=== PATIENT | female | born 1935 | race Caucasian/White ===

== ENCOUNTER 2023-05-24 19:17 | Emergency (ER) | payer OTHER ==
--- NOTE | 2023-05-24 20:30 | RAD REPORT ---
EXAM DESCRIPTION: CT - CTHCSPWOC - 05/24/2023 8:11 pm CLINICAL HISTORY: TRAUMA COMPARISON: No comparisons TECHNIQUE: Axial thin cut noncontrast CT images of the head were obtained. Axial thin cut noncontrast CT images of the cervical spine were obtained. Multiplanar reformatted images were generated and reviewed. All CT scans are performed using dose optimization technique as appropriate and may include automated exposure control or mA/KV adjustment according to patient size. FINDINGS: CT HEAD WITHOUT CONTRAST: No acute hemorrhage, hydrocephalus or extra-axial collection is identified. Mild right tonsillar ecto bruce, descending 5 mm below the level of the foramen magnum. Nonspecific right basal ganglia focus of hypoattenuation. Other nonspecific mild periventricular and deep white matter hypodensities, most com patible with sequela of chronic small vessel ischemic changes.No areas of brain edema or midline shif t. Sequelae of chronic sinusitis, with polypoidal mucosal thickening and sinus wall osteoneogenesis in t he right maxillary sinus.The calvarium is intact. CT CERVICAL SPINE WITHOUT CONTRAST: No fracture or subluxation.No prevertebral soft tissues swelling is identified. At least moderate mul tilevel degenerative changes, contributing to moderate degrees of neural foraminal narrowing bilatera lly at C3-4, on the left at C5-6, and on the right at C6-7 and C7-T1. Dominant right thyroid nodule w ith retrosternal extension, measuring 4.0 x 2.7 cm. IMPRESSION: No acute traumatic intracranial or cervical spine findings. Nonspecific right basal ganglia focus of hypoattenuation, may reflect a small infarct, favored to be chronic, versus sequelae of chronic small vessel ischemic changes. Degenerative cervical spine changes as above. Mild right tonsillar ectopia. Dominant right thyroid nodule up to 4 cm, for which dedicated thyroid ultrasound assessment would be recommended, if not already performed.
--- NOTE | 2023-05-24 21:18 | ER ---
Nurse's Notes [facility] [place] Name: Ni Alcala Age: 88 yrs Sex: Female : 1935 Arrival Date: 05/24/2023 Time: 19:17 Bed 10 Private MD: Diagnosis: Fall, closed head injury, forehead abrasion, right elbow abrasion Presentation: 05/23 19:19 Chief complaint: Patient states: fall with contusion and abrasion to right forehead, pf1 skin tear to right elbow with right hip pain,onset 1 hour [employer]. Patient denies any LOC. Son stated that patient was stepping off the curb, loss her balance and landed onto her right side. Son stated patient was checked out by EMS on scene, patient refused transport to hospital, bandage noted to right elbow. 20:00 Method Of Arrival: Wheelchair nj1 20:00 Coronavirus screen: At this time, the client does not indicate any symptoms associated nj1 with coronavirus-19. Ebola Screen: No symptoms or risks identified at this time. Risk Assessment: Do you want to hurt yourself or someone else? Patient reports no desire to harm self or others. Onset of symptoms was May 24, 2023. 20:00 Acuity: HANNAH 3 nj1 20:57 Initial Sepsis Screen: Does the patient meet any 2 criteria? HR > 90 bpm. No. Patient's nj1 initial sepsis screen is negative. Does the patient have a suspected source of infection? No. Patient's initial sepsis screen is negative. Triage Assessment: 19:19 General: Appears in no apparent distress. comfortable, well groomed, well developed, pf1 Behavior is calm, cooperative, appropriate for age, quiet. 19:19 Pain: Complains of pain in forehead, right elbow and right hip. Neuro: No deficits pf1 noted. Level of Consciousness is awake, alert, obeys commands, Oriented to person, place, time, situation. Musculoskeletal: Reports pain in forehead, right elbow,right hip. Historical: - Allergies: 19:46 No Known Allergies; pf1 - PMHx: 19:46 Hypertensive disorder; pf1 - PSHx: 19:46 Cholecystectomy; section; pf1 - Immunization history:: Adult Immunizations not up to date, Client reports having NOT received the Covid vaccine. Last tetanus immunization: > 10 years ago Flu vaccine is not up to date. - Infectious Disease History:: Denies. - Social history:: Smoking status: Patient denies any tobacco usage or history of. Patient/guardian denies using alcohol, street drugs. Screenin:00 [facility] ED Fall Risk Assessment (Adult) History of falling in the last 3 months, nj1 including since admission Yes- single mechanical fall (1 pt) Confusion or Disorientation No (0 pts) Intoxicated or Sedated No (0 pts) Impaired Gait Yes (1 pt) Mobility Assist Device Used No (0 pt) Altered Elimination No (0 pt) Score/Fall Risk Level 0 - 2 = Low Risk Oriented to surroundings, Maintained a safe environment, Hourly rounding (assess needs \T\ fall precautionary measures) done. Abuse screen: Denies threats or abuse. Denies injuries from another. Nutritional screening: No deficits noted. Tuberculosis screening: No symptoms or risk factors identified. Assessment: 20:00 General: Appears in no apparent distress. comfortable, Behavior is calm, cooperative, nj1 appropriate for age. Pain: Denies pain. Neuro: Level of Consciousness is awake, alert, obeys commands, Oriented to person, place, situation. Cardiovascular: Patient's skin is warm and dry. Respiratory: Airway is patent Respiratory effort is even, unlabored. 20:00 Derm: Skin is fragile, has skin tears on Right upper arm. Injury Description:. Injury nj1 Description: Avulsion sustained to forehead. 21:00 Reassessment: Patient appears in no apparent distress at this time. Patient and/or pf1 family updated on plan of care and expected duration. Pain level reassessed. Patient is alert, oriented x 3, equal unlabored respirations, skin warm/dry/pink. Patient states symptoms have improved. 21:35 Reassessment: Patient will be discharge after shot time. pf1 Vital Signs: 19:30 BP 174 / 79; Pulse 100; Resp 18; Pulse Ox 100% ; nj1 20:55 BP 161 / 85; Pulse 98; Resp 18; Temp 97.2; Pulse Ox 100% on R/A; nj1 21:40 BP 155 / 72; Pulse 89; Resp 16; Temp 97.8; Pulse Ox 100% ; Pain 2/10; pf1 21:40 Pain Scale: Adult pf1 ED Course: 19:19 Patient arrived in ED. im 19:23 Yudelka Slater, RN is Primary Nurse. nj1 19:24 Maira Vázquez MD is Attending Physician. sp3 20:00 Patient has correct armband on for positive identification. Bed in low position. Call nj1 light in reach. Adult w/ patient. Provided Education on: fall precautions, call light. 20:00 Arm band placed on right wrist. pf1 20:10 CT Head C Spine In Process Unspecified. EDMS 20:20 Wound care: to Skin tear located on right upper arm was cleaned with soap and water, nj1 dressed with Kerlix, Non adherent pad. 20:30 Wound care: to road rash located on forehead was cleaned with soap and water, dressed nj1 with Kerlix, non adherent pad, Patient tolerated well. 20:48 Triage completed. nj1 21:43 No provider procedures requiring assistance completed. Patient did not have IV access pf1 during this emergency room visit. Administered Medications: 21:25 Drug: Boostrix Tdap IM 0.5 ml IM once; as a single dose Route: IM; Site: right deltoid; pf1 21:42 Follow up: Response: No adverse reaction pf1 Medication: 21:46 Vaccine Information Statement (VIS) provided today. Questions and/or concerns pf1 addressed. VIS edition date: September 14, 2020. Outcome: 21:18 Discharge ordered by . sp3 21:45 Discharged to home ambulatory, with family, pf1 21:45 Condition: improved 21:45 Discharge instructions given to patient, family, Instructed on discharge instructions, follow up and referral plans. Demonstrated understanding of instructions, follow-up care, wound care, 21:47 Patient left the ED. pf1 Signatures: Dispatcher [employer] EDHI Maira Vázquze MD MD sp3 Demi Layne RN RN pf1 Yudelka Slater, LB RN nj1 Eboni Stevenson im
--- NOTE | 2023-05-24 21:19 | EDPHYS ---
Physician Documentation [facility] Name: Ni Alcala Age: 88 yrs Sex: Female : 1935 Arrival Date: 05/24/2023 Time: 19:17 Bed 10 Private MD: ED Physician Maira Vázquez HPI: 05/23 20:08 This 88 yrs old Female presents to ER via Unassigned with complaints of Head Injury sp3 Without LOC-Adult, Fall Injury. 20:08 88-year-old female with history of hypertension now presents with right forehead injury sp3 and right elbow injury secondary to mechanical ground-level fall witnessed by family. Patient's glasses scratched her head as she fell. No loss of consciousness reported. Patient has no complaints other than the bleeding on her right elbow and forehead. Limited H\T\P secondary to mild dementia patient is minimally verbal however this is her baseline.. Historical: - Allergies: 19:46 No Known Allergies; pf1 - PMHx: 19:46 Hypertensive disorder; pf1 - PSHx: 19:46 Cholecystectomy; section; pf1 - Immunization history:: Adult Immunizations not up to date, Client reports having NOT received the Covid vaccine. Last tetanus immunization: > 10 years ago Flu vaccine is not up to date. - Infectious Disease History:: Denies. - Social history:: Smoking status: Patient denies any tobacco usage or history of. Patient/guardian denies using alcohol, street drugs. ROS: 20:09 Unable to obtain ROS due to baseline dementia, sp3 Exam: 20:09 Constitutional: This is a well developed, well nourished patient who is awake, alert, sp3 and in no acute distress. Eyes: Pupils equal round and reactive to light, extra-ocular motions intact. Lids and lashes normal. Conjunctiva and sclera are non-icteric and not injected. Cornea within normal limits. Periorbital areas with no swelling, redness, or edema. ENT: Nares patent. No nasal discharge, no septal abnormalities noted. External auditory canals are clear. Oropharynx with no redness, swelling, or masses, exudates, or evidence of obstruction, uvula midline. Mucous membranes moist. Neck: Trachea midline, no thyromegaly or masses palpated, and no cervical lymphadenopathy. Supple, full range of motion without nuchal rigidity, or vertebral point tenderness. No Meningismus. Chest/axilla: Normal chest wall appearance and motion. Nontender with no deformity. No lesions are appreciated. Cardiovascular: Regular rate and rhythm with a normal S1 and S2. No gallops, murmurs, or rubs. Normal PMI, no JVD. No pulse deficits. Respiratory: Lungs have equal breath sounds bilaterally, clear to auscultation and percussion. No rales, rhonchi or wheezes noted. No increased work of breathing, no retractions or nasal flaring. Abdomen/GI: Soft, non-tender, with normal bowel sounds. No distension or tympany. No guarding or rebound. No evidence of tenderness throughout. MS/ Extremity: Pulses equal, no cyanosis. Neurovascular intact. Full, normal range of motion. Neuro: Awake and alert, GCS 15, oriented to person, place, time, and situation. Cranial nerves II-XII grossly intact. Motor strength 5/5 in all extremities. Sensory grossly intact. Cerebellar exam normal. Normal gait. Psych: Awake, alert, with orientation to person, place and time. Behavior, mood, and affect are within normal limits. 20:09 Neuro: Limited neuroexam however grossly normal moving all extremities and patient able to follow commands and answer questions., 20:10 Skin: Abrasions noted on the right forehead and temporal area without obvious sp3 laceration. Right lateral elbow also has skin tear and abrasions without obvious laceration.. Vital Signs: 19:30 BP 174 / 79; Pulse 100; Resp 18; Pulse Ox 100% ; nj1 20:55 BP 161 / 85; Pulse 98; Resp 18; Temp 97.2; Pulse Ox 100% on R/A; nj1 21:40 BP 155 / 72; Pulse 89; Resp 16; Temp 97.8; Pulse Ox 100% ; Pain 2/10; pf1 21:40 Pain Scale: Adult pf1 MDM: 19:26 Patient medically screened. sp3 20:10 Data reviewed: vital signs, nurses notes, old medical records, radiologic studies. ED sp3 course: 88-year-old female with mechanical fall witnessed. We will obtain CT scan of the head and C-spine and x-ray of the right elbow. General wound care and if all negative we will safely discharged home. And at high suspicious for intracranial hemorrhage, significant fracture, medical prodrome or etiology for fall, or any other critical process at this time.. 21:17 ED course: Patient declined x-ray of the elbow. CT demonstrates no significant acute sp3 traumatic abnormality. We will safely discharge patient home at this time. She received a tetanus shot. Wound care is been completed. Follow-up with PCP.. 05/23 19:27 Order name: CT Head C Spine; Complete Time: 20:33 sp3 05/23 19:39 Order name: Wound Care: Right elbow and forehead; Complete Time: 20:38 sp3 Administered Medications: 21:25 Drug: Boostrix Tdap IM 0.5 ml IM once; as a single dose Route: IM; Site: right deltoid; pf1 21:42 Follow up: Response: No adverse reaction pf1 Disposition Summary: 05/24/23 21:18 Discharge Ordered Notes: Location: Home sp3 Condition: Stable sp3 Diagnosis - Fall, closed head injury, forehead abrasion, right elbow abrasion sp3 Followup: sp3 - With: Private Physician - When: Upon discharge from the Emergency Department - Reason: Continuance of care Discharge Instructions: - Discharge Summary Sheet sp3 - Abrasion sp3 - Head Injury, Adult sp3 Forms: - Medication Reconciliation Form sp3 - Thank You Letter sp3 - Antibiotic Education sp3 - Prescription Opioid Use sp3 - Patient Portal Instructions sp3 - Leadership Thank You Letter sp3 Signatures: Dispatcher [employer] EDMaira Amaya MD MD sp3 Demi Layne RN RN pf1 Corrections: (The following items were deleted from the chart) 20:31 20:11 Elbow Right 2 View+[email or web address] ordered. EDID EDMS
[2023-05-24] MEDS ORDERED: TDAP (DIPHTH,PERTUSS(ACELL),TET VAC) 0.5 ML VIAL IMVAC ONE (21:25)
[2023-05-25 00:13] VITALS: BP 155/72; TEMP 97.8; O2SAT 100
== END 2023-05-24 21:47 | disposition home or self-care (01) ==
LOC: ER 19:17
DX: S00.81XA Abrasion of other part of head, initial encounter (principal); S50.311A Abrasion of right elbow, initial encounter; W18.30XA Fall on same level, unspecified, initial encounter; I10 Essential (primary) hypertension; F03.90 Unspecified dementia, unspecified severity, without behavioral disturbance, psychotic disturbance, mood disturbance, and anxiety
CPT/HCPCS: 70450; 72125; 96372; 99284

== ENCOUNTER 2024-01-04 06:21 | Day surgery (SDC) | payer OTHER ==
[2023-12-30 15:11] LABS: Absolute Eosinophils 0.1 K/uL (0-0.5); Absolute Lymphocytes (CBC) 1.7 K/uL (0.7-4.9); Absolute Monocytes 0.6 K/uL (0.1-1.3); Absolute Neutrophil 3.8 K/uL (1.8-8.0); Basophils % 0.6 % (0-1.3); Hematocrit 36.6 % (36.0-45.0); Hemoglobin 12.5 g/dL (12.0-15.0); Lymphocytes % 27.4 % (15.3-44.8); MCH 30.2 pg (27.0-35.0); MCHC 34.1 g/dL (32.0-36.0); MCV 88.5 fL (80-100); MPV 7.7 fL (7.6-11.3); Monocytes % 9.4 % (3.3-12.3); Neutrophils % 60.6 % (41.7-73.7); Platelets 278 thou/uL (152-406); RBC Red Blood Cell Count 4.13 M/uL (3.86-4.86); Red Cell Distribution Width 13.6 % (12.1-15.2)
[2023-12-30 15:16] LABS: Anion Gap 11.3 mEq/L (5.0-15.0); Potassium 3.3 mEq/L (3.5-5.1)
--- NOTE | 2023-12-30 15:39 | RAD REPORT ---
Procedure: Chest Pa And Lat (2 Views) HISTORY: Breast cancer. Hypertension. Preop COMPARISON: none FINDINGS: The lungs appear clear of acute infiltrate.. Lungs are moderately hyperaerated. No significant pleural effusion noted. The heart is mildly enlarged. IMPRESSION: No acute abnormality is displayed.
[2024-01-04] MEDS ORDERED: dexAMETHasone 10 MG/ML VIAL ONE (06:33)
[2024-01-04] MEDS ORDERED: LIDOCAINE 1% MPF 5 ML VIAL ONE (06:33)
[2024-01-04] MEDS ORDERED: BUPIVACAINE 0.25% PF 10 ML VIAL ONE (06:34)
[2024-01-04] MEDS ORDERED: EPINEPHRINE 1 MG/ML VIAL ONE (06:34)
[2024-01-04] MEDS ORDERED: propofoL 200 MG/20 ML VIAL IV ONE (06:34)
[2024-01-04] MEDS ORDERED: BUPIVACAINE 0.5% PF 10 ML VIAL ONE (06:35)
[2024-01-04] MEDS: Ringers Lactate 1,000 ML IV ONE (06:37)
[2024-01-04] MEDS: METHYLENE BLUE 1% 10 ML VIAL ONE (08:05)
[2024-01-04] MEDS: CEFAZOLIN SODIUM 2 GM/VIAL ONE (08:05)
--- NOTE | 2024-01-04 08:08 | RAD REPORT ---
EXAM:Lymphoscintigraphy CLINICAL HISTORY: Breast cancer TECHNIQUE: 2 intradermal injections, injected at lateral and medial aspects of the palpable mass of Left breast of total approx 246 uCi LYMPHOSEEK IMPRESSION ;LYMPHOSCINTIGARAYHY
[2024-01-04] MEDS ORDERED: MEPERIDINE HCL 25 MG/ML SYR ONE (09:25)
[2024-01-04] MEDS ORDERED: Mastisol Adhesive Liq ONE (09:41)
--- NOTE | 2024-01-04 09:51 | P.OP ---
Date of Service: 01/04/24 Preop diagnosis: Left breast cancer Postop diagnosis: Same Procedure performed: Left breast mastectomy, left-sided sentinel node axillary lymph node biopsy Surgeon: Jeremy Chambers MD Sexual Assault Counsellor: Hiwot HIRSCH Estimated blood loss: Minimal Specimen: [place] nodenegative for metastatic disease, left breastmargins free Findings: As above Anesthesia: General Complications: None Drains: ELADIO #10 flat Fluids and blood products: Nonapplicable Disposition: Recovery room Operative note: Patient brought to the OR and placed in supine position. General anesthesia began. Under sterile condition methylene blue injected around the nipple areolar complex of the left breast. Breast massaged. Patient prepped and draped in the usual sterile fashion. Counter device used to isolate the sentinel node in the left axilla. 3 cm incision made over the sentinel node. Subcutaneous tissue divided and a blue lymph node identified. Vascular robert used as needed. The blue lymph node excised and sent to pathology for frozen section. The frozen section revealed no evidence of metastatic disease. A standard mastectomy incision made with 15 blade. Subcutaneous tissue divided and bleeding controlled with cautery. The sentinel node incision was included in the mastectomy incision. The incision was approximately 20 x 10 cm. Flaps were created superiorly to the clavicle, medially to the border of the sternum, inferiorly to the insertion of the rectus abdominis muscle and laterally to the anterior border of the latissimus dorsi. All breast tissue was removed from the pectoralis fascia posteriorly and sent to pathology for margin check. The margins were negative. The tumor itself was approximately 4 x 4 cm. Wound irrigated and bleeding controlled with cautery. ELADIO drain #10 flat was placed in the wound and secured with 3-0 nylon. 2-0 chromic and 3-0 chromic were used to close the subcutaneous tissue and skin. Sterile dressing applied. Patient awakened and taken to recovery room in good general condition. CC: Dr. Longoria's office
[2024-01-04] MEDS ORDERED: HYDROCODONE/APAP 5/325 MG TAB PO PRN (09:54)
[2024-01-04 11:24] VITALS: BP 127/54; TEMP 97.2; O2SAT 99
--- NOTE | 2024-01-04 12:12 | EKG ---
Test Date: 2023-12-30 Test Time: 15:50:46 Continuous Improvement Facilitator: LANCE MEASUREMENT RESULTS: Intervals: Rate: 76 TN: 148 QRSD: 80 QT: 386 QTc: 434 [place]: P: 70 TN: 148 QRS: 85 T: 76 INTERPRETIVE STATEMENTS: Sinus rhythm with premature supraventricular complexes Otherwise normal ECG No previous ECG available for comparison Electronically Signed On 01-04-24 12:05:06 PONY RIDE OPERATOR by Corby Castillo
== END 2024-01-04 11:35 | disposition home or self-care (01) ==
LOC: OR 06:21
PROVIDERS: ATTEND Surgery
PROC: 07B60ZX Excision of Left Axillary Lymphatic, Open Approach, Diagnostic (ICD-10-PCS; 2024-01-04)
PROC: 0HTU0ZZ Resection of Left Breast, Open Approach (ICD-10-PCS; principal; 2024-01-04 08:18)
DX: C50.412 Malignant neoplasm of upper-outer quadrant of left female breast (principal); I10 Essential (primary) hypertension; N18.9 Chronic kidney disease, unspecified
CPT/HCPCS: 93005; 85025; 80048; 36415; 88307; 88333; 71046; 78195; 19307; J2704; J2003; J1100; J2175; J0171; J7120; A9520